=== PATIENT | female | born 1940 | race Caucasian/White ===

== ENCOUNTER → 2023-11-15 10:00 | Outpatient (REF) | payer OTHER, SELFPAY | LOC: DHCBS HW 10:00 | PROVIDERS: ATTENDING PHYSICIAN Internal Medicine Cardiovascular Disease; FAMILY PHYSICIAN Family Medicine | DX: I51.7 Cardiomegaly (principal); I05.9 Rheumatic mitral valve disease, unspecified; I35.9 Nonrheumatic aortic valve disorder, unspecified | CPT/HCPCS: 93306 ==

== ENCOUNTER 2024-01-15 06:43 | Emergency (ER) | payer OTHER, SELFPAY ==
[2024-01-15 06:44] VITALS: BMI 29.4
[2024-01-15 06:45] VITALS: BP 119/57
[2024-01-15 07:00] VITALS: BP 112/64
--- NOTE | 2024-01-15 07:02 | ED.GENMED ---
History of Present Illness
General
Chief Complaint: Fall
Source: patient
Time Seen by Provider: 01/15/24 06:50
Travel History
Have you had any contact with someone who has COVID-19?: No
Do you have any symptoms of coronavirus? Fever > 100 degrees, chills, cough, shortness of breath, sore throat, loss of taste or smell, muscle aches, or headache?: No
History of Present Illness
History of Present Illness:
83-year-old female brought to the emergency by ambulance after falling at home. Patient states she was sitting on her toilet to get dressed after getting a shower and Something on the floor. She leaned forward to fern picker this object when she fell
forward off of the toilet. Her body landed on both of her arms and she was unable to put herself up. Her had recent pacemaker placement and was unable to help her get up. 911 was called. Patient states that she was feeling unwell last
night with nausea vomiting diarrhea. No nausea currently. Patient denies any abdominal pain.
Past History
Past History
ED Past Medical History: HTN, NIDDM, Renal failure (Renal insufficiency) and Other (Kidney stones)
ED Past Surgical History: Tonsilectomy, Urological and Other
Social History
Tobacco: Non-smoker
Alcohol: None
Drug: None
Living: with family
Employment: Not employed
Phy Exam
Physical Exam
Physical Exam:
General: Awake, Alert, Oriented X3. No acute distress.
Vitals: unremarkable
Head: Atraumatic
Eyes: Pupils equal, EOMI
Throat: Airway intact, no exudates, dry mucosa
Neck: Trachea midline
Lungs: Clear and equal b/l
Heart: Regular rate, no murmurs
Abd: Soft, Nontender, No pulsatile mass
Neuro: Nonfocal
Skin: Warm, dry, no rash
Extremities: pulses equal b/l, no edema
Course
Orders/Labs/Results
Orders:
Orders
01/15/24 06:54
CMP [Comprehensive Metabolic Panel] Urgent
Complete Blood Count/With Diff Urgent
01/15/24 07:02
0.9% Sodium Chloride 500 ml [Nss] 500 ml IV BOLUS
Abnormal Lab Results
01/15/24
06:54
WBC 18.6 H 10^3/uL
(4.8-10.8)
MCH 31.2 H pg
(27.0-31.0)
MPV 11.6 H fL
(7.4-10.4)
Abs Immat Gran (auto) 0.1 H 10^3/uL
(0-0.05)
Absolute Neuts (auto) 16.9 H 10^3/uL
(1.4-6.5)
Absolute Lymphs (auto) 0.6 L 10^3/uL
(1.2-3.4)
Absolute Monos (auto) 1.1 H 10^3/uL
(0.1-0.6)
Neutrophils % 90.6 H %
(42.2-75.2)
Lymphocytes % 3.1 L %
(20.5-51.1)
BUN 22 H mg/dl
(7-17)
Creatinine 1.1 H mg/dL
(0.6-1.0)
Glucose 248 H mg/dl
(70-99)
01/15/24 06:54
01/15/24 06:54
Vital Signs
Initial and Last Documented VS:
Initial Vital Signs
Temp Pulse Resp BP Pulse Ox
98.5 F 96 18 119/57 96
01/15/24 06:45 01/15/24 06:45 01/15/24 06:45 01/15/24 06:45 01/15/24 06:45
Last Documented Vital Signs
Temp Pulse Resp BP Pulse Ox
98.5 F 80 18 98/50 93
01/15/24 06:45 01/15/24 08:45 01/15/24 08:45 01/15/24 08:00 01/15/24 08:45
MDM/Problems Addressed
Differential Diagnosis Includes:
gastroenteritis, dehydration, renal failure,
MDM/Problems Addressed:
Pt feeling well here in the ER. She received a 500cc fluid bolus. She was able to ambulate w/o difficulty. Pt would like to go home and feels much better.
Chronic conditions affecting care: DM, HTN and Other
*Pulse Oximetry
Patient hypoxic: no
*Critical Care Note
Total Time (30-74mins, 75-104mins- exclusive of procedures): Not Applicable
ED Attending Note
-
Portions of this chart may have been created with voice recognition software.� Occasional wrong word or��sound alike� substitutions may have occurred due to the inherent limitations of voice recognition software.
Discharge Plan
Departure
Patient Disposition: Home (Routine Discharge)
Date of Disposition: 01/15/24
Time of Disposition: 09:31
Patient with high blood pressure during this ER visit?: No
Condition: Good
Discharge Problem:
Fall, Gastroenteritis
Instructions: Viral gastroenteritis in adults, Preventing falls in adults
Prescriptions:
No Action
atenolol 50 MG tablet
50 mg PO DAILY Qty: 30 1RF
aspirin 81 MG tablet,delayed release (DR/EC)
81 mg PO DAILY
calcium carbonate 600 MG tablet
300 mg PO BID
simvastatin 20 MG tablet
20 mg PO HS
fluorometholone 1 DROP drops,suspension
1 drp BOTH EYES HS
lisinopril [Prinivil] 40 MG tablet
40 mg PO DAILY
coenzyme Q10 [Co Q-10] 100 MG capsule
100 mg PO HS
insulin aspart U-100 [Novolog FlexPen U-100 Insulin] 300 UNITS/3 ML insulin pen
0 units SC DAILYPRN PRN (Reason: bs>116)
Patient Comments:
01/22/20 patient only takes when bs>115
fish oil-dha-epa 1 EACH capsule
1 ea PO BID
insulin glargine [Lantus Solostar U-100 Insulin] 300 UNITS/3 ML insulin pen
50 units SC HS
potassium citrate 15 MEQ tablet extended release
15 meq PO HS Qty: 0
multivitamin with folic acid [Tab-A-Mabel] 1 TABLET tablet
1 tab PO DAILY
omeprazole 20 MG capsule,delayed release(DR/EC)
20 mg PO DAILY
sitagliptin phos-metformin [Janumet] 1 EACH tablet
1 ea PO BID@0800,1700
L.acidoph, paracasei,B. lactis 1 EACH capsule
1 ea PO HS
phenazopyridine 200 MG tablet
200 mg PO TIDPRN PRN (Reason: dysuria) Qty: 60 0RF
Referrals:
Yaya Morton MD [Family Provider] -
Interventions
Interventions:
*Risk Screen - Suicide Last Done: 01/15/24 06:45
*General Assessment Last Done: 01/15/24 06:50
*Neglect/Abuse Screening Last Done: 01/15/24 06:45
ED- Fall Risk Assessment Last Done: 01/15/24 09:42
*ED COVID-19 Vaccine History Last Done: 01/15/24 09:42
*Nursing Disposition Last Done: 01/15/24 09:42
ED-Musculoskeletal Assessment Last Done: 01/15/24 07:06
ED- Neurological Assessment Last Done: 01/15/24 07:06
ED-Skin Assessment Last Done: 01/15/24 07:06
Discharge Date and Time
Discharge Date/Time: 01/15/24 09:42
Print Language: KYRGYZ
[2024-01-15] MEDS: NSS 500 IV (07:08)
[2024-01-15 07:23] LABS: % Basophils 0.2 % (0-2); % Immature Granulocytes 0.5 % (0-0.5); % Lymphocytes 3.1 % (20.5-51.1); % Monocytes 5.6 % (1.7-9.3); % Neutrophils 90.6 % (42.2-75.2); Absolute Immature Granulocytes 0.1 10^3/uL (0-0.05); Absolute Lymphocytes 0.6 10^3/uL (1.2-3.4); Absolute Monocytes 1.1 10^3/uL (0.1-0.6); Absolute Neutrophils 16.9 10^3/uL (1.4-6.5); Hematocrit 42.1 % (37.0-47.0); Hemoglobin 13.9 g/dL (12.0-16.0); Mean Corpuscular Hgb 31.2 pg (27.0-31.0); Mean Corpuscular Volume 94.4 fL (81.0-99.0); Nucleated Red Blood Cells % 0 %; Red Blood Cell Count 4.46 10^6/uL (4.20-5.40); Red Cell Dist. Width 13.2 % (11.5-14.5); White Blood Cell Count 18.6 10^3/uL (4.8-10.8)
[2024-01-15 07:29] LABS: ALT (SGPT) 22 U/L (0-35); AST (SGOT) 31 U/L (14-36); Albumin 3.9 g/dl (3.5-5.0); Alkaline Phosphatase 85 U/L (38-126); Blood Urea Nitrogen 22 mg/dl (7-17); Calcium 9.4 mg/dl (8.4-10.2); Carbon Dioxide 28 mmol/L (22-30); Chloride 103 mmol/L (98-107); Estimated Creatinine Clearance 40 ml/min; Glucose 248 mg/dl (70-99); Potassium 3.6 mmol/L (3.5-5.1); Sodium 141 mmol/L (135-145); Total Bilirubin 0.8 mg/dl (0.2-1.3); Total Protein 6.6 g/dl (6.3-8.2); eGFR 50.48
[2024-01-15 07:52] LABS: Mean Platelet Volume 11.6 fL (7.4-10.4); Platelet Count 154 10^3/uL (130-400)
[2024-01-15 08:00] VITALS: BP 98/50
== END 2024-01-15 09:42 | disposition home or self-care (01) ==
LOC: EMR 06:43
PROVIDERS: EMERGENCY PHYSICIAN Emergency Medicine; FAMILY PHYSICIAN Family Medicine
DX: K52.9 Noninfective gastroenteritis and colitis, unspecified (principal); W18.11XA Fall from or off toilet without subsequent striking against object, initial encounter; Y93.E8 Activity, other personal hygiene; Y92.002 Bathroom of unspecified non-institutional (private) residence as the place of occurrence of the external cause; R11.2 Nausea with vomiting, unspecified; R19.7 Diarrhea, unspecified; E11.9 Type 2 diabetes mellitus without complications; I12.9 Hypertensive chronic kidney disease with stage 1 through stage 4 chronic kidney disease, or unspecified chronic kidney disease; N18.9 Chronic kidney disease, unspecified; Z87.442 Personal history of urinary calculi; Z79.82 Long term (current) use of aspirin; Z88.8 Allergy status to other drugs, medicaments and biological substances; Z88.3 Allergy status to other anti-infective agents; Z88.5 Allergy status to narcotic agent; Z88.0 Allergy status to penicillin; Z91.013 Allergy to seafood
CPT/HCPCS: 99284; 80053; 85025

== ENCOUNTER → 2024-01-30 11:38 | Outpatient (REF) | payer OTHER, SELFPAY | LOC: PAVMRI 11:38 | PROVIDERS: ATTENDING PHYSICIAN Physician Assistant Medical; FAMILY PHYSICIAN Family Medicine | DX: M25.562 Pain in left knee (principal) | CPT/HCPCS: 73721 ==

== ENCOUNTER → 2024-03-17 07:36 | Outpatient (REF) | payer OTHER, SELFPAY | LOC: DHCBC/DCA 07:36 | PROVIDERS: ATTENDING PHYSICIAN Internal Medicine Cardiovascular Disease; FAMILY PHYSICIAN Family Medicine | DX: I70.0 Atherosclerosis of aorta (principal); I10 Essential (primary) hypertension; I25.10 Atherosclerotic heart disease of native coronary artery without angina pectoris; I50.32 Chronic diastolic (congestive) heart failure | CPT/HCPCS: 78452; 93017; A9500; J2785 ==

== ENCOUNTER 2024-04-16 09:08 | Inpatient (IN) | payer OTHER, SELFPAY ==
--- NOTE | 2024-03-12 10:28 | CM ---
Patient is scheduled for an elective L TKR on 04/16/24. Spoke with patient prior to surgery via telephone. Introduced role of Orthopedic Navigator. Patient reports that she lives with her and adult daughter (who has CP but is independent) in
a multi story home. There is a ramp to enter and a flight of steps down to the basement where her family room is. She currently functions independently. She uses a quad cane for very long distances and also has a rolling walker, single point cane,
shower seat and wheel chair. She has never had VN services. PCP is Dr. Yaya Morton.
Discussed orthopedic program and post surgical plans. Reviewed anticipated length of stay and that goal is for her to return home at discharge. Also reviewed outpatient PT. Patient is in agreement with tentative plan and will go directly to
outpatient PT at [facility]. She will have support from her when she goes home.
Patient will complete online education.
[2024-03-28 10:43] VITALS: BMI 27.7
[2024-03-28 11:42] LABS: Glycohemoglobin (HgbA1c) 7.1 % (4.0-5.6)
[2024-03-28 12:07] LABS: Hematocrit 40.1 % (37.0-47.0); Hemoglobin 13.5 g/dL (12.0-16.0); Mean Corp Hgb Conc. 33.7 g/dL (33.0-37.0); Mean Corpuscular Hgb 31.8 pg (27.0-31.0); Mean Corpuscular Volume 94.6 fL (81.0-99.0); Mean Platelet Volume 12.2 fL (7.4-10.4); Platelet Count 198 10^3/uL (130-400); Red Blood Cell Count 4.24 10^6/uL (4.20-5.40); Red Cell Dist. Width 13.2 % (11.5-14.5); White Blood Cell Count 7.3 10^3/uL (4.8-10.8)
[2024-03-28 12:49] LABS: ALT (SGPT) 16 U/L (0-35); AST (SGOT) 28 U/L (14-36); Albumin 4.3 g/dl (3.5-5.0); Alkaline Phosphatase 69 U/L (38-126); Blood Urea Nitrogen 29 mg/dl (7-17); Calcium 10.1 mg/dl (8.4-10.2); Carbon Dioxide 31 mmol/L (22-30); Chloride 98 mmol/L (98-107); Estimated Creatinine Clearance 39 ml/min; Glucose 260 mg/dl (70-99); Potassium 4.1 mmol/L (3.5-5.1); Sodium 138 mmol/L (135-145); Total Protein 6.9 g/dl (6.3-8.2); eGFR 50.17
[2024-04-09 15:30] VITALS: BMI 27.7
[2024-04-09 15:57] VITALS: BMI 27.7
[2024-04-16] VITALS (13 sets, daily range): BP systolic 112–159; BP diastolic 55–83; PULSE 83; O2SAT 97
[2024-04-16] MEDS: CELEBREX 200 MG PO (09:50)
[2024-04-16] MEDS: TYLENOL 650 MG PO ×4 (09:50→23:12)
[2024-04-16 09:52] LABS: Glucose - Point of Care 114 mg/dl (70-99)
[2024-04-16] MEDS: NORMOSOL-R 1000 IV ×2 (09:57→14:46)
[2024-04-16 12:26] LABS: Glucose - Point of Care 102 mg/dl (70-99)
--- NOTE | 2024-04-16 13:00 | W.DS.TRANS ---
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
-
Discharge Instructions:
Sleep Apnea Risk Low
Discharge Diagnosis/Procedures L TKA Dr. Jones 04/16/24
Diet Diabetic, Carb Controlled
Activity With Walker
Driving Restrictions No driving
Bathing Restrictions OK to Shower
Instructions:
Stand-Alone Forms: Total Hip/Knee Replacement D/C
Changes to Home Medications: Yes
Discharge Medications:
DC Medications w/original date entered in [employer]
atenolol 50 mg tablet 50 mg PO DAILY #30 tabs 02/23/17
coenzyme Q10 100 mg capsule (Co Q-10) 100 mg PO HS Supplement 10/06/19
fluorometholone 0.1 % eye drops,suspension 1 drp BOTH EYES HS Eye condition 10/06/19
insulin aspart U-100 100 unit/mL (3 mL) subcutaneous pen (Novolog FlexPen U-100 Insulin aspart) 10 - 12 units SC BID 10/06/19
insulin glargine 100 unit/mL (3 mL) subcutaneous pen (Lantus Solostar U-100 Insulin) 25 units SC DAILY Diabetes 10/06/19
potassium citrate 15 mEq (1,620 mg) tablet,extended release 15 meq PO HS Urinary issue ##0 10/06/19
simvastatin 20 mg tablet 20 mg PO HS High cholesterol 10/06/19
[place] 3 Ethyl Esters 1 cap PO BID 04/09/24
calcium carbonate 300 mg PO BID 04/09/24
hydrochlorothiazide 25 mg tablet 25 mg PO DAILY 04/09/24
lisinopril 40 mg tablet 40 mg PO DAILY 04/09/24
multivitamin 1 tab PO DAILY 04/09/24
mupirocin 2 % topical ointment 1 applic topical BID 04/09/24
sitagliptin phos 100 mg-metformin ER 1,000 mg tablet,extend rel 24h mp (Janumet XR) 1 tab PO QPM 04/09/24
ondansetron HCl 4 mg tablet 4 mg PO Q6H PRN post op nausea 04/15/24
Probiotic 1 cap PO BID ##0 04/16/24
aspirin 325 mg tablet 325 mg PO DAILY blood clot prevention #0 tabs 04/16/24
celecoxib 100 mg capsule 100 mg PO BID post op inflammation #0 caps 04/16/24
clindamycin HCl 300 mg capsule 300 mg PO QID Infection #20 caps 04/16/24
dexamethasone 4 mg tablet 4 mg PO BID post op inflammation #0 tabs 04/16/24
docusate sodium 100 mg capsule (Colace) 100 mg PO BID stool softner #1 cap 04/16/24
insulin glargine 100 unit/mL (3 mL) subcutaneous pen 35 unit SC QPM 04/16/24
magnesium hydroxide 400 mg/5 mL oral suspension (Milk of Magnesia) 30 ml PO HS PRN Constipation #1 mL 04/16/24
sennosides 8.6 mg tablet (Senokot) 17.2 mg (2 x 8.6 mg) PO BID laxative #2 tabs 04/16/24
tramadol 50 mg tablet 50 mg PO Q6H post op pain #0 tabs 04/16/24
Home Medication Changes
ondansetron HCl 4 mg tablet 4 mg PO Q6H PRN post op nausea 04/15/24
Probiotic 1 cap PO BID ##0 04/16/24
aspirin 325 mg tablet 325 mg PO DAILY blood clot prevention #0 tabs 04/16/24
celecoxib 100 mg capsule 100 mg PO BID post op inflammation #0 caps 04/16/24
clindamycin HCl 300 mg capsule 300 mg PO QID Infection #20 caps 04/16/24
dexamethasone 4 mg tablet 4 mg PO BID post op inflammation #0 tabs 04/16/24
tramadol 50 mg tablet 50 mg PO Q6H post op pain #0 tabs 04/16/24
Pending Results: No
[2024-04-16] MEDS: ULTRAM 50 MG PO (14:12)
[2024-04-16] MEDS: ZOFRAN 4 MG IV (14:20)
[2024-04-16 14:26] LABS: Glucose - Point of Care 114 mg/dl (70-99)
[2024-04-16] MEDS: COMPAZINE 5 MG IV (15:29)
--- NOTE | 2024-04-16 16:25 | PTCARENOTE ---
Pt received from the PACU via bed. Transport was w/o incident. Pt is AAOx3, HRR, lungs are clear, resp. easy. Pulse ox 97% 2Lvia nc. Pt's Left Knee with Primaseal dressing w/ noted 3 areas of drainage as per report from PACU. No new drainage noted.
VSS, Pt is afebrile. Pt instructed on plan of care. Pt verbalized understanding of instructions. Call escobar is within reach.
[2024-04-16 17:10] LABS: Glucose - Point of Care 169 mg/dl (70-99)
[2024-04-16] MEDS: NOVOLOG FLEXPEN 4 UNITS SC (18:33)
[2024-04-16] MEDS: NOVOLOG FLEXPEN-MODERATE RESISTANCE 1 UNITS SC (18:34)
[2024-04-16] MEDS: ASPIRIN 325 MG PO (18:35)
[2024-04-16] MEDS: GLUCOPHAGE XR EXTENDED RELEASE 1000 MG PO (18:35)
[2024-04-16] MEDS: JANUVIA 100 MG PO (18:35)
[2024-04-16] MEDS: SENOKOT PO (20:28)
[2024-04-16] MEDS: ANCEF 5 IV (20:30)
[2024-04-16] MEDS: TORADOL 15 MG IV (20:30)
[2024-04-16] MEDS: COLACE 100 MG PO (20:30)
[2024-04-16] MEDS: ULTRAM 25 MG PO (20:30)
[2024-04-16] MEDS: BACTROBAN 2% OINTMENT 1 APPLIC NASAL (20:30)
[2024-04-16 21:40] LABS: Glucose - Point of Care 208 mg/dl (70-99)
[2024-04-16] MEDS: PEPCID 20 MG PO (22:27)
[2024-04-16] MEDS: FML 0.1% OPHTHALMIC SUSPENSION 1 DROP BOTH EYES (22:28)
[2024-04-16] MEDS: LIPITOR 10 MG PO (22:28)
[2024-04-16] MEDS: NEURONTIN 300 MG PO (22:28)
[2024-04-16] MEDS: LANTUS 0.38 UNITS SC (22:38)
[2024-04-17] MEDS: TYLENOL 650 MG PO ×3 (03:40→12:31)
[2024-04-17] MEDS: ANCEF 5 IV (03:40)
[2024-04-17 07:50] LABS: Glucose - Point of Care 146 mg/dl (70-99)
[2024-04-17 07:52] VITALS: BP 116/60
[2024-04-17] MEDS: NOVOLOG FLEXPEN 2 UNITS SC (08:48)
[2024-04-17] MEDS: BACTROBAN 2% OINTMENT 1 APPLIC NASAL (08:49)
[2024-04-17] MEDS: NOVOLOG FLEXPEN-MODERATE RESISTANCE SC (08:49)
[2024-04-17] MEDS: ULTRAM 25 MG PO (08:50)
[2024-04-17] MEDS: TORADOL 15 MG IV (08:53)
[2024-04-17] MEDS: ZESTRIL 10 MG PO (08:55)
[2024-04-17] MEDS: TENORMIN 25 MG PO (08:55)
[2024-04-17] MEDS: CELEBREX 200 MG PO (08:55)
[2024-04-17] MEDS: COLACE 100 MG PO (08:55)
[2024-04-17] MEDS: ASPIRIN 325 MG PO (08:55)
[2024-04-17] MEDS: SENOKOT 17.2 MG PO (08:56)
[2024-04-17] MEDS: LANTUS 0.3 UNITS SC (09:01)
--- NOTE | 2024-04-17 11:10 | W.PN.ORTHO ---
Today's Communication / Plan
-
d/c
Assessment
.
Distal Motor Intact: Yes
Dressing:
Clean, dry and intact.
Plan
.
Surgery / Date: Anitra Jones 04/16/24
DVT Prophylaxis: Aspirin
Activity:
Out of bed.
PT/OT
Discharge Plan: Home w/ Outpatient PT
Subjective
.
.:
Patient resting comfortably.
Vital Signs and Labs
.
Vital Signs and Labs:
Lab Results
03/28/24 09:16
03/28/24 09:16
Temp Pulse Resp BP Pulse Ox
98.6 F 82 18 116/60 93
04/17/24 07:52 04/17/24 07:52 04/17/24 07:52 04/17/24 07:52 04/17/24 07:52
Non-invasive Hgb result: 12
Physical Exam
-
HEENT: No pallor, cyanosis, or jaundice. Throat clear.
NECK: Supple. No JVD.
RESPIRATORY: Lungs clear to auscultation.
CVS: S1, S2 normal. RRR.� No murmur, rub or gallop.
ABDOMEN: Soft, non-tender. No distension. BS+/normal.
EXTREMITIES: strength equal, no calf pain with palpation
COLOR CONTROL SUPERVISOR: AOx3. No focal deficits. jewelry polisher grossly intact
--- NOTE | 2024-04-17 11:35 | CM ---
Addendum entered by Julianne Reis 04/17/24 13:11:
PCP: Yaya Morton
Pharmacy: [facility]
Original Note:
Patient seen at bedside.
IA was completed.
Patient lives in a 2 story home with & adult daughter with a ramp to enter home. Living space on 1st floor with bedroom and bathroom.
Denies any housing/food/utility insecurities.
Stated she already signed IMM.
IMM was explained on 04/17 922.
Case consult completed.
Patient has set up outpatient rehab. States friends from [facility] will be transporting there as her had a 'medical problem' a few weeks ago.
Discharge today - Niece is to transport home.
[2024-04-17 11:47] VITALS: BP 96/50
[2024-04-17 12:12] VITALS: BP 116/47; BP 96/50; PULSE 72
[2024-04-17 12:25] LABS: Glucose - Point of Care 152 mg/dl (70-99)
[2024-04-17] MEDS: NOVOLOG FLEXPEN 4 UNITS SC (12:30)
[2024-04-17] MEDS: NOVOLOG FLEXPEN-MODERATE RESISTANCE 1 UNITS SC (12:31)
== END 2024-04-17 15:42 | disposition home or self-care (01) | DRG 470 ==
LOC: 2 SOUTH 09:08
PROVIDERS: ADMITTING PHYSICIAN Orthopaedic Surgery; FAMILY PHYSICIAN Family Medicine
PROC: 0SRD0J9 Replacement of Left Knee Joint with Synthetic Substitute, Cemented, Open Approach (ICD-10-PCS; 2024-04-16)
DX: M17.12 Unilateral primary osteoarthritis, left knee (principal); I47.10 Supraventricular tachycardia, unspecified; K21.9 Gastro-esophageal reflux disease without esophagitis; E11.51 Type 2 diabetes mellitus with diabetic peripheral angiopathy without gangrene; E78.2 Mixed hyperlipidemia; I35.1 Nonrheumatic aortic (valve) insufficiency; R26.2 Difficulty in walking, not elsewhere classified; Z79.4 Long term (current) use of insulin; Z79.84 Long term (current) use of oral hypoglycemic drugs; Z79.899 Other long term (current) drug therapy; Z88.0 Allergy status to penicillin; Z88.5 Allergy status to narcotic agent
CPT/HCPCS: 36415; 73560; 80053; 82962; 83036; 85027; 87070; 97110; 97116; 97162; 97166; 97530; 97535; C1713; C1776

== ENCOUNTER 2024-04-20 22:37 | Inpatient (IN) | payer OTHER, SELFPAY ==
[2024-04-20] VITALS (7 sets, daily range): BP systolic 122–163; BP diastolic 53–76; BMI 28.3; BMI 27.5
[2024-04-20 20:14] LABS: Glucose - Point of Care 79 mg/dl (70-99)
[2024-04-20] MEDS: NSS 1000 IV (20:40)
--- NOTE | 2024-04-20 20:44 | ED.GENMED ---
History of Present Illness
General
Chief Complaint: Abdominal Pain
Source: patient and family
Time Seen by Provider: 04/20/24 20:20
History of Present Illness
History of Present Illness:
84-year-old female presents here with her niece and niece's with complaints of inability to tolerate p.o. all day. Patient is status post recent knee replacement and has been doing well in her recovery. She denies knee pain, fever, chills.
However, she noticed yesterday that when she would try to eat she would feel like it was not passing and like her throat was getting tight. Eventually it would pass and this would be painful for her, and then the symptoms would go away. She had a
very small amount of oatmeal yesterday. Today, she states she cannot tolerate liquids or solids because of this discomfort and feeling like it is getting before it passes. She denies vomiting, drooling, nausea, or other complaints. She denies
dyspnea or new leg swelling. Of note, patient was started on new medications including anti-inflammatories and steroids. She does not note black stool or bright red blood per rectum.
Past History
Past History
ED Past Medical History: HTN, IDDM, Renal failure (Renal insufficiency) and Other (Kidney stones)
ED Past Surgical History: Tonsilectomy, Urological and Other
Social History
Tobacco: Non-smoker
Alcohol: None
Drug: None
Living: with family
Employment: Not employed
Phy Exam
Physical Exam
Physical Exam:
GENERAL: Alert , in no apparent distress
EYE: pupils equal and reactive
NECK: Supple, no significant adenopathy.
ENT: o/p clr, mm very dry
CARDIAC: Regular rate and rhythm .
LUNGS: Clear breath sounds bilaterally, no acute respiratory distress, no wheezes/rales/rhonchi
ABDOMEN: Soft, without focal tenderness, no r/g, no cvat
NEUROLOGICAL: Alert and oriented, no focal neuro deficits
SKIN: Warm and dry, skin intact.
MUSCULOSKELETAL: Left knee with intact bandage, appropriate postoperative expected bruising, no redness or warmth, expected range of motion, well perfused.
PSYCH: Normal and appropriate interaction.
Course
Orders/Labs/Results
Orders:
Orders
04/20/24 20:39
0.9% Sodium Chloride 1000 ml [Nss] 1,000 ml IV BOLUS
04/20/24 20:41
Electrocardiogram (*1) Urgent
Reason for Study: Chest Pain
EKG- Treatment ONCE
04/20/24 20:42
CMP [Comprehensive Metabolic Panel] Urgent
Complete Blood Count/With Diff Urgent
Lipase Urgent
04/20/24 21:16
Pantoprazole [Protonix IV] 40 mg IV NOW STA
04/20/24 21:50
Dextrose 50%-Water [Dextrose 50% Syringe] 25 grams .ROUTE .[facility]
04/20/24 21:51
Dextrose 50%-Water [Dextrose 50% Syringe] 12.5 grams IV NOW STA
04/20/24 22:00
Dextrose 5%/0.9%Sodchl 1000 ml [D5/0.9% Sodium Chloride] 1,000 ml IV 100 mls/hr
Flush (0.9% Sodium Chloride) [Flush (Nss)] See Dose Instructions IV PER PROTOCOL
04/20/24 22:16
CR Chest - 2 Views Stat
Comment:
Reason For Exam: sob
04/20/24 22:23
Admit/Transfer Patient As Directed
Co-Sign Provider:
Level of Care: Inpatient admission
Assign to:: Medical/Surgical
Physician / Group: bebe
Diagnosis: esophagitis
Reason for Hospitalization: esophagitis
Expected length of stay greater than two midnights?: Yes
ELOS- Estimated Length of Stay in days: 3
I certify the patient meets the requirements for IP care: Yes
PRN Pain Medication Management As Directed
May give lesser potent ordered pain med per pt: Yes
preference::
Protocol:: Medication orders for pain may be administered in a
manner that supports deferring to patient preference
when the pt is:
- Requesting an ordered lesser potent pain medication.
Least to most potent pain medications are defined
as: acetaminophen < NSAID < tramadol < opioids
(morphine, oxycodone, hydromorphone).
- Requesting a lesser dose of the same medication IF
ORDERED.
- Requesting a less intrusive route of administration
if both routes are prescribed by the provider (PO <
IV).
04/20/24 22:26
Code Status As Directed
Resuscitation Status: Full Code
04/21/24 00:36
Acetaminophen [Tylenol] 650 mg PO Q4HPRN PRN
Bisacodyl [Dulcolax] 10 mg RECTAL [id number] PRN
Dextrose 5%/0.45%Sodchl 1000ML [D5/0.45%NaCl] 1,000 ml IV 80 mls/hr
Dextrose 50%-Water [Dextrose 50% Syringe] 12.5 grams IV [id number] PRN
Docusate W/Senna [Senokot-S] 1 tablet PO BIDPRN PRN
Glucagon [GlucaGen] 1 mg IM PRN PRN
Mag&Al/Sim/Diphenhyd/Lidocaine [First-Mouthwash Blm Suspension] 5 ml PO QIDPRN PRN
Polyethylene Glycol Powder [Miralax] 17 grams PO DAILYPRN PRN
04/21/24 00:36
Consult Notification Routine
Specialty to Notify: Gastroenterology
GASTROINTESTINAL CONSULT Routine
Consulting Provider: Joseph Bedoya
Was physician already notified: No
Reason for consult: odonophagia
Activity As Directed
Activity Level: As Tolerated
Bedside Glucose Monitoring As Directed
Frequency: AC&HS
Additional Instructions:: Change to q6h if pt on TPN, tube feeding or not eating
Vital Signs As Directed
Frequency: Per unit guidelines
04/21/24 Breakfast
NPO
Allow oral meds: Yes
Allow clear liquids: No
Basic Metabolic Panel IN AM
Complete Blood Count/No Diff IN AM
04/21/24 07:30
Insulin Aspart Corrective Low [Novolog Flexpen-Low Resistance] See Protocol SC AC
04/21/24 08:00
Atenolol [Tenormin] 50 mg PO DAILY
Clindamycin HCl [Cleocin] 300 mg PO QID
Docusate Sodium [Colace] 100 mg PO BID
Hydrochlorothiazide [Oretic] 25 mg PO DAILY
Lisinopril [Zestril] 40 mg PO DAILY
Pantoprazole [Protonix IV] 40 mg IV DAILY
Sennosides [Senokot] 17.2 mg PO BID
04/21/24 22:00
Atorvastatin [Lipitor] 10 mg PO HS
Fluorometholone [Fml 0.1% Ophthalmic Suspension] 1 drop BOTH EYES HS
Potassium Citrate [Urocit-K] 15 meq PO HS
04/22/24 06:00
Basic Metabolic Panel IN AM
Complete Blood Count/No Diff IN AM
04/23/24 06:00
Basic Metabolic Panel IN AM
Complete Blood Count/No Diff IN AM
04/24/24 06:00
Basic Metabolic Panel IN AM
Complete Blood Count/No Diff IN AM
04/25/24 06:00
Basic Metabolic Panel IN AM
Complete Blood Count/No Diff IN AM
Abnormal Lab Results
04/20/24 04/20/24 04/20/24
20:42 21:50 22:17
WBC 12.0 H 10^3/uL
(4.8-10.8)
RBC 3.45 L 10^6/uL
(4.20-5.40)
Hgb 10.9 L g/dL
(12.0-16.0)
Hct 31.1 L %
(37.0-47.0)
MCH 31.6 H pg
(27.0-31.0)
MPV 10.8 H fL
(7.4-10.4)
Abs Immat Gran (auto) 0.1 H 10^3/uL
(0-0.05)
Absolute Neuts (auto) 7.6 H 10^3/uL
(1.4-6.5)
Absolute Monos (auto) 1.0 H 10^3/uL
(0.1-0.6)
Carbon Dioxide 31 H mmol/L
(22-30)
BUN 34 H mg/dl
(7-17)
Creatinine 1.1 H mg/dL
(0.6-1.0)
Glucose 69 L mg/dl
(70-99)
Total Bilirubin 1.6 H mg/dl
(0.2-1.3)
AST 50 H U/L
(14-36)
POC Glucose 62 L mg/dl 150 H mg/dl
(70-99) (70-99)
04/20/24 20:42
04/20/24 20:42
Vital Signs
Initial and Last Documented VS:
Initial Vital Signs
Temp Pulse Resp BP Pulse Ox
98.3 F 82 18 125/63 96
04/20/24 20:02 04/20/24 20:02 04/20/24 20:02 04/20/24 20:02 04/20/24 20:02
Last Documented Vital Signs
Temp Pulse Resp BP Pulse Ox
97.7 F 73 20 137/68 96
04/20/24 23:45 04/20/24 23:45 04/20/24 23:45 04/21/24 00:53 04/20/24 23:45
*Critical Care Note
Total Time (30-74mins, 75-104mins- exclusive of procedures): Not Applicable
Update Note
Update Note:
Patient presents to the Emergency Department with difficulty tolerating p.o.
Number and Complexity of Problems Addressed at the Encounter
� Chronic conditions affecting care:
� Acute Exacerbation and/or Progression of Chronic Illness:
� Differential Diagnosis includes: But not limited to esophagitis, gastritis, gastric ulcer, esophageal ulcer, stricture, etc. etc.
Amount and/or Complexity of Data to be Reviewed and Analyzed
� I performed an independent evaluation of and my interpretation is:
EKG:read by me, nsr with 1st degree vlock, no acute ischemia
CT:
Xrays:
Laboratory Studies:mild leukocytosis (?related to recent steroids), mild anemia compared to prior, stable renal insufficiency.
Other:
� Review of other/old records reveals:
� Clinical information was obtained by an independent historian: Niece and niece's
� Prescriptions/Medications Considered but not given:
� Further testing considered but not performed:
Risk of Complications and/or Morbidity or Mortality of Patient Management
� Social determinants of health affecting care:
� Discussion with other providers (PCP, Hospitalists, Consultants, etc):
� Escalation of care including admission/observation vs risk of discharge considered:Pt unable to tolerate po due to discomfort, no pain or sxs if not trying to swallow. Given recent steroids/nsaids, concern ?possible
esophageal/gastric inflamm/ulcers. Benn[place]y needs endoscopy with GI in AM. In meantime, hydration and blood glucose managemnet. TT to hsopitalist for admission.
ED Attending Note
-
Portions of this chart may have been created with voice recognition software.� Occasional wrong word or��sound alike� substitutions may have occurred due to the inherent limitations of voice recognition software.
Discharge Plan
Departure
Patient Disposition: Admit
Date of Disposition: 04/20/24
Time of Disposition: 21:45
Admit to: Med/Surg
Presentation/result/management discussed w/ accepting MD/DO: Hospitalist
Condition: Fair
Discharge Problem:
Odynophagia
Interventions
Interventions:
*Risk Screen - Suicide Last Done: 04/20/24 20:02
*General Assessment Last Done: 04/20/24 20:02
*Neglect/Abuse Screening Last Done: 04/20/24 20:02
ED- Fall Risk Assessment Last Done: 04/20/24 20:20
*Nursing Disposition Last Done: 04/20/24 23:36
EA-Hnavdh-Afiixwcnbn Assessment Last Done: 04/20/24 20:20
Discharge Date and Time
Discharge Date/Time: 04/20/24 23:37
[2024-04-20 20:52] LABS: % Basophils 0.3 % (0-2); % Eosinophils 0.6 % (0-6); % Immature Granulocytes 0.4 % (0-0.5); % Lymphocytes 26.3 % (20.5-51.1); % Monocytes 8.7 % (1.7-9.3); % Neutrophils 63.7 % (42.2-75.2); Absolute Eosinophils 0.1 10^3/uL (0-0.7); Absolute Immature Granulocytes 0.1 10^3/uL (0-0.05); Absolute Lymphocytes 3.1 10^3/uL (1.2-3.4); Absolute Neutrophils 7.6 10^3/uL (1.4-6.5); Hematocrit 31.1 % (37.0-47.0); Hemoglobin 10.9 g/dL (12.0-16.0); Mean Corpuscular Hgb 31.6 pg (27.0-31.0); Mean Corpuscular Volume 90.1 fL (81.0-99.0); Mean Platelet Volume 10.8 fL (7.4-10.4); Nucleated Red Blood Cells % 0 %; Platelet Count 205 10^3/uL (130-400); Red Blood Cell Count 3.45 10^6/uL (4.20-5.40); Red Cell Dist. Width 13.4 % (11.5-14.5)
[2024-04-20 21:11] LABS: ALT (SGPT) 24 U/L (0-35); AST (SGOT) 50 U/L (14-36); Albumin 4.2 g/dl (3.5-5.0); Alkaline Phosphatase 59 U/L (38-126); Blood Urea Nitrogen 34 mg/dl (7-17); Carbon Dioxide 31 mmol/L (22-30); Chloride 99 mmol/L (98-107); Estimated Creatinine Clearance 39 ml/min; Glucose 69 mg/dl (70-99); Lipase 216 U/L (23-300); Potassium 3.5 mmol/L (3.5-5.1); Sodium 142 mmol/L (135-145); Total Bilirubin 1.6 mg/dl (0.2-1.3); Total Protein 6.8 g/dl (6.3-8.2); eGFR 50.17
[2024-04-20] MEDS: D5/0.9% SODIUM CHLORIDE 1000 IV (21:44)
[2024-04-20] MEDS: PROTONIX IV 40 MG IV (21:45)
[2024-04-20] MEDS: DEXTROSE 50% SYRINGE 12.5 GRAMS IV (21:51)
--- NOTE | 2024-04-20 21:51 | HPS.HSE ---
Family Physician
-
Family Physician: Yaya Morton
Chief Complaint
-
painful swallowing
History of Present Illness
84-year-old female with PMH for hyperlipidemia, SVT, hypertension, PVD, type 2 diabetes, GERD, stage III chronic kidney disease presented to us with painful swallowing. Pain with swallowing started yesterday. Every time she eats or drinks she
feels the pain in her throat, as if it was getting contracted. she felt the pain in her Esophagus and across the upper stomach. Patient denied any nausea, vomiting, diarrhea. Denied any black stools. Denied any bloody stools. Patient denied
any headache, dizziness, syncopal episode. Patient denied any fever, chills, chest pain, short of breath. Patient denied dysuria hematuria.
patient is status post recent knee replacement and has been doing well in her recovery. She denies knee pain. fever, chills. Patient was sent home on aspirin, Celebrex Decadron, clindamycin and tramadol.
Medical History
Past Medical History
Past Medical History: Reports Other
Additional Past Medical History:
Hyperlipidemia
SVT
Hypertension
PVD
Type 2 diabetes
GERD
Stage III chronic kidney disease
Past Surgical History: Reports Other
Additional Past Surgical History:
Tonsillectomy
Hysterectomy
Removal of kidney stones
Corneal transplant
Cataract
Left below-knee amputation
Social History
Tobacco: Non-smoker
Alcohol: None
Drug: None
Personal:
Living: With Family
Family History
Family History: Not pertinent
Allergies / Home Medications
Allergies reflects when Allergies were last updated in [facility].
Home Medications with original date entered in [facility]
Allergy/Medication List:
Allergies
Allergy/AdvReac Type Severity Reaction Status Date / Time
Cephalosporins Allergy Unknown Verified 04/09/24 16:22
iodine Allergy Hives Verified 04/09/24 16:22
oxycodone HCl [From Percocet] Allergy hallucinati Verified 04/09/24 16:22
ons
penicillin G Allergy Rash Verified 04/09/24 16:22
Penicillins Allergy Rash Verified 04/16/24 09:32
shellfish derived Allergy Hives Verified 04/09/24 16:22
Home Medications
atenolol 50 mg tablet 50 mg PO DAILY #30 tabs 02/23/17
coenzyme Q10 100 mg capsule (Co Q-10) 100 mg PO HS Supplement 10/06/19
fluorometholone 0.1 % eye drops,suspension 1 drp BOTH EYES HS Eye condition 10/06/19
insulin aspart U-100 100 unit/mL (3 mL) subcutaneous pen (Novolog FlexPen U-100 Insulin aspart) 10 - 12 units SC BID Diabetes 10/06/19
insulin glargine 100 unit/mL (3 mL) subcutaneous pen (Lantus Solostar U-100 Insulin) 25 units SC DAILY Diabetes 10/06/19
potassium citrate 15 mEq (1,620 mg) tablet,extended release 15 meq PO HS Urinary issue ##0 10/06/19
simvastatin 20 mg tablet 20 mg PO HS High cholesterol 10/06/19
[place] 3 Ethyl Esters 1 cap PO BID 04/09/24
calcium carbonate 300 mg PO BID Supplement 04/09/24
hydrochlorothiazide 25 mg tablet 25 mg PO DAILY Fluid Retention/Swelling 04/09/24
lisinopril 40 mg tablet 40 mg PO DAILY Blood Pressure 04/09/24
multivitamin 1 tab PO DAILY Supplement 04/09/24
mupirocin 2 % topical ointment 1 applic topical BID 04/09/24
sitagliptin phos 100 mg-metformin ER 1,000 mg tablet,extend rel 24h mp (Janumet XR) 1 tab PO QPM Diabetes 04/09/24
Probiotic 1 cap PO BID ##0 04/16/24
aspirin 325 mg tablet 325 mg PO DAILY blood clot prevention #0 tabs 04/16/24
celecoxib 100 mg capsule 100 mg PO BID post op inflammation #0 caps 04/16/24
clindamycin HCl 300 mg capsule 300 mg PO QID Infection #20 caps 04/16/24
dexamethasone 4 mg tablet 4 mg PO BID post op inflammation #0 tabs 04/16/24
docusate sodium 100 mg capsule (Colace) 100 mg PO BID stool softner #1 cap 04/16/24
insulin glargine 100 unit/mL (3 mL) subcutaneous pen 35 unit SC QPM Diabetes 04/16/24
magnesium hydroxide 400 mg/5 mL oral suspension (Milk of Magnesia) 30 ml PO HS PRN Constipation #1 mL 04/16/24
sennosides 8.6 mg tablet (Senokot) 17.2 mg (2 x 8.6 mg) PO BID laxative #2 tabs 04/16/24
Review of Systems
-
Constitutional: Reports No Symptoms
EENT: Reports No Symptoms
Respiratory: Reports No Symptoms
Cardiac: Reports No Symptoms
Abdomen/GI: Reports Abdominal Pain and Other (Painful swallowing)
: Reports No Symptoms
Musculoskeletal: Reports No Symptoms
Skin: Reports No Symptoms
Neurological: Reports No Symptoms
Endocrine: Reports No Symptoms
Hematologic/Lymphatic: Reports No Symptoms
Psych: Reports No Symptoms
Physical Exam
Vital Signs
Vital Signs
Temp Pulse Resp BP Pulse Ox
98.3 F 82 18 125/63 96
04/20/24 20:02 04/20/24 20:02 04/20/24 20:02 04/20/24 20:02 04/20/24 20:26
Physical Exam
General: Well Developed, Well Nourished and No Apparent Distress
HEENT: NormoCephalic, Moist mucous membranes and Atraumatic
Respiratory: Clear
Cardiac: S1/S2 and Regular Rhythm; No Murmur or Rub
GI: Soft, Non Tender, Non Distended and Normal Bowel Sounds; No Organomegaly
Rectal: Deferred by Provider
Musculoskeletal: No Clubbing, No Cyanosis and Other (left LE edema,bruising noted on left thigh)
Skin: No Rash
Neuro: AO x 3 and Nonfocal/grossly intact
Psych: Calm
Laboratory Results
-
04/20/24 20:42
04/20/24 20:42
Laboratory Results
Total Bilirubin 1.6 mg/dl (0.2-1.3) H 04/20/24 20:42
AST 50 U/L (14-36) H 04/20/24 20:42
ALT 24 U/L (0-35) 04/20/24 20:42
Alkaline Phosphatase 59 U/L (38-126) 04/20/24 20:42
Lipase 216 U/L (23-300) 04/20/24 20:42
Data Reviewed
-
Lab Data: Labs Reviewed by me
Impression/Plan
-
#odynophagia/stomach pain likely esophagitis
-initiated on magic mouth wash
-IV PPI
-keep patient NPO
-fluids continued for hydration
-GI consult
#leukocytosis likely stress reaction/recent post op
-wc 12.0
-patient is afebrile
-ctm
#anemia likely postop
-hgb stable at 10.9
-no active bleeding
-ctm
# Status post left knee replacement
-hold aspirin,Celebrex.
-Clinda for 5 days for prophylactically (tomorrow being the 5th day)
-Decadron was for 3 days.
#CKD stage 3b
-cr 1.1m bun 34
-ctm
# Essential hypertension
-Blood pressure stable
-continue atenolol and HCTZ, lisinopril with hold parameter
# Type 2 diabetes
-Hold long-acting, insulin from home as patient was hypoglycemic on arrival
-Sliding scale
# Hyperlipidemia
-Statin continued
# DVT prophylaxis
-lovenox
# CODE STATUS
-Full code
[2024-04-20 21:52] LABS: Glucose - Point of Care 62 mg/dl (70-99)
[2024-04-20 22:19] LABS: Glucose - Point of Care 150 mg/dl (70-99)
--- NOTE | 2024-04-20 22:24 | W.PN.UPDATE ---
Update Note
Progress Note Update
Patient seen, evaluated and examined in conjunction with MATY. Agree with her findings on history exam and concur with assessment and plan unless otherwise stated below.
Briefly this is an 84-year-old female with past medical history significant for insulin-dependent diabetes on Lantus twice daily, hypertension, hyperlipidemia, obesity and end-stage arthritis who was recently status post total knee arthroplasty and
discharged April 17. She was placed on aspirin 325 for DVT prophylaxis, dexamethasone and Celebrex. Patient reports sudden onset of pain with swallowing. She reported pain starts after sips of water or any amount of food. It starts in the upper
esophagus/neck and radiates down to the diaphragm and across the diaphragm. She denies any nausea or vomiting. She denies regurgitation. She denies any melena. She denies any hematochezia. She has been unable to tolerate any liquids or solids.
She denies any chest pain at rest. She breath. Denies any cough or wheezing. She denies any fevers or chills.
In the ED he was afebrile hemodynamically stable and in no acute distress. Chemistries were mostly unremarkable except for blood glucose of 69 that trended down to 62. Creatinine was 1.1 and BUN was slightly elevated at 34. CBC was mostly
unremarkable except for mild leukocytosis to 12,000. ECG with sinus rhythm and a 4 degree AV block but without any acute ST or T wave changes.
A&P
1. Odynophyagia/Dysphagia - Pain begins in neck and radiates down the chest. No sensation of food getting stuck. No regurgitation, nasuea or vomiting. No melena. Suspect esophagitis which may be secondary to gastritis from NSAIDs + steroids,
pill esophagitis or hypersensitivity. Its is causing significant PO decline and increased risk of hypoglycemia.
- admit to obs med
- check chest xray
- trial of magic mouth wash
- agree with PPI IV for now
- NPO except selected meds
- holding aspirin, NSAIDs, lovenox for DVT PPX
- GI consultation
2. DM II - Hypoglycemia. Improved with 1/2 amp dextrose. Now on d 5 1/2 NS
- hold lantus for now
- sliding scale insulin q 6
- d/c d5 for glucose > 200
Management of hypertension, hyperlipidemia and pain control per BILLING SPEC
Code Status - Full Code
[2024-04-21 00:53] VITALS: BP 137/68
--- NOTE | 2024-04-21 04:28 | PTCARENOTE ---
Pt aaox3 able to make her needs known. Pt oob with 1 person assist. Pt oriented to room & call escobar in reach.Plan of care continued.
[2024-04-21] MEDS: D5/0.45%NACL 1000 IV ×2 (05:42→15:02)
[2024-04-21 05:45] LABS: Glucose - Point of Care 125 mg/dl (70-99)
[2024-04-21 06:36] LABS: Hematocrit 29.5 % (37.0-47.0); Hemoglobin 10.6 g/dL (12.0-16.0); Mean Corp Hgb Conc. 35.9 g/dL (33.0-37.0); Mean Corpuscular Hgb 31.6 pg (27.0-31.0); Mean Corpuscular Volume 88.1 fL (81.0-99.0); Mean Platelet Volume 11.6 fL (7.4-10.4); Platelet Count 144 10^3/uL (130-400); Red Blood Cell Count 3.35 10^6/uL (4.20-5.40); Red Cell Dist. Width 13.2 % (11.5-14.5); White Blood Cell Count 8.3 10^3/uL (4.8-10.8)
[2024-04-21 06:58] LABS: Blood Urea Nitrogen 23 mg/dl (7-17); Calcium 8.9 mg/dl (8.4-10.2); Carbon Dioxide 24 mmol/L (22-30); Chloride 106 mmol/L (98-107); Estimated Creatinine Clearance 47 ml/min; Glucose 119 mg/dl (70-99); Potassium 4.1 mmol/L (3.5-5.1); Sodium 142 mmol/L (135-145); eGFR > 60.00
[2024-04-21 07:05] VITALS: BP 161/74
[2024-04-21] MEDS: ZESTRIL 40 MG PO (10:25)
[2024-04-21] MEDS: ORETIC 25 MG PO (10:26)
[2024-04-21] MEDS: COLACE 100 MG PO ×2 (10:26→20:28)
[2024-04-21] MEDS: TENORMIN 50 MG PO (10:26)
[2024-04-21] MEDS: SENOKOT 17.2 MG PO (10:26)
[2024-04-21] MEDS: CLEOCIN 300 MG PO ×4 (10:29→21:55)
[2024-04-21] MEDS: NSS (PRESERVATIVE FREE) 10 ML IV (10:52)
[2024-04-21] MEDS: PROTONIX IV 40 MG IV (10:52)
[2024-04-21] MEDS: FIRST-MOUTHWASH BLM SUSPENSION 5 ML PO (10:53)
[2024-04-21 12:05] LABS: Glucose - Point of Care 137 mg/dl (70-99)
--- NOTE | 2024-04-21 12:15 | W.PN.HOSP.TC ---
Today's Communication/Plan
-
see bold
Assessment / Plan
Assessment / Plan
Gen: NAD, AAOx3.
Eyes: EOMI, PERRLA, no scleral icterus.
Neck: supple.
CV: RRR, +S1/S2, no m/r/g.
Resp: CTAB, no rales, wheezes, or rhonchi.
Abd: +BS, soft, NT, ND
Skin: No rashes.
Neuro: CN 2-12 intact, non-focal.
Psych: Normal mood and affect.
CXR: No radiographic evidence for acute cardiopulmonary disease, pneumoperitoneum, or bowel obstruction.
Odynophagia/Dysphagia:
-NPO/IVFs
-magic mouthwash
-cont PPI
-holding home NSAIDs/ASA
-EGD tomorrow
DM2:
-with hypoglycemia
-s/p 1/2 amp D50W
-cont D5 1/2NS
Other problems:
Recent L TKA: complete 5 days prophylactic clindamycin
Essential hypertension: cont Atenolol/HCTZ/ACEi
Hyperlipidemia: cont statin
CKD3b
FULL/SCDs
Anticipated Discharge: 24 - 48 hours
Subjective/Interval History
-
Date of Service: April 21, 2024
No new complaints.
Objective Data
-
Labs:
Laboratory Results
04/21/24
06:18
WBC 8.3
Hgb 10.6 L
Hct 29.5 L
Plt Count 144 D
Sodium 142
Potassium 4.1
Chloride 106
Carbon Dioxide 24
BUN 23 H
Creatinine 0.9
Glucose 119 H
Calcium 8.9
Vital Signs:
Vital Signs
Temp Pulse Resp BP Pulse Ox
99 F 75 20 161/74 97
04/21/24 07:05 04/21/24 10:25 04/21/24 07:05 04/21/24 10:25 04/21/24 07:05
--- NOTE | 2024-04-21 13:07 | CON.GI ---
Consultation
-
Date/Time Consultation Requested: 04/21/2024
Date/Time Consultation Performed: 04/21/2024
Performing Provider: Joseph Bedoya
Reason for Consultation: odynophagia
Medical History
Chief Complaint / HPI
Chief Complaint: odynophagia
History of Present Illness:
Patient is a 84-year-old female with history of hyperlipidemia, HTN, PVD, DM, stage III CKD who presents with odynophagia. Her symptoms started about 2 days ago and has not been able to eat much due to pain when she tries to swallow. Also has some
dysphagia. She recently had orthopedic surgery. Denies NSAID use.
Past Medical History
Past Medical History: GERD, HTN, NIDDM and Other
Past Surgical History: Orthopedic and Other
Social History
Tobacco: Non-Smoker
Alcohol: None
Allergies / Home Medications
Allergy/AdvReac Type Severity Reaction Status Date / Time
Cephalosporins Allergy Unknown Verified 04/09/24 16:22
iodine Allergy Hives Verified 04/09/24 16:22
oxycodone HCl [From Percocet] Allergy hallucinati Verified 04/09/24 16:22
ons
penicillin G Allergy Rash Verified 04/09/24 16:22
Penicillins Allergy Rash Verified 04/16/24 09:32
shellfish derived Allergy Hives Verified 04/09/24 16:22
�Medication �Instructions �Recorded
atenolol 50 mg tablet 50 mg PO DAILY #30 tabs 02/23/17
coenzyme Q10 100 mg capsule (Co 100 mg PO HS Supplement 10/06/19
Q-10)
fluorometholone 0.1 % eye 1 drp BOTH EYES HS Eye condition 10/06/19
drops,suspension
insulin aspart U-100 100 unit/mL 10 - 12 units SC BID Diabetes 10/06/19
(3 mL) subcutaneous pen (Novolog
FlexPen U-100 Insulin aspart)
insulin glargine 100 unit/mL (3 25 units SC DAILY Diabetes 10/06/19
mL) subcutaneous pen (Lantus
Solostar U-100 Insulin)
potassium citrate 15 mEq (1,620 15 meq PO HS Urinary issue ##0 10/06/19
mg) tablet,extended release
simvastatin 20 mg tablet 20 mg PO HS High cholesterol 10/06/19
[place] 3 Ethyl Esters 1 cap PO BID Supplement 04/09/24
calcium carbonate 300 mg PO BID Supplement 04/09/24
hydrochlorothiazide 25 mg tablet 25 mg PO DAILY Fluid 04/09/24
Retention/Swelling
lisinopril 40 mg tablet 40 mg PO DAILY Blood Pressure 04/09/24
multivitamin 1 tab PO DAILY Supplement 04/09/24
mupirocin 2 % topical ointment 1 applic topical BID Infection 04/09/24
sitagliptin phos 100 mg-metformin 1 tab PO QPM Diabetes 04/09/24
ER 1,000 mg tablet,extend rel 24h
mp (Janumet XR)
Probiotic 1 cap PO BID ##0 04/16/24
aspirin 325 mg tablet 325 mg PO DAILY blood clot 04/16/24
prevention #0 tabs
celecoxib 100 mg capsule 100 mg PO BID post op inflammation 04/16/24
#0 caps
clindamycin HCl 300 mg capsule 300 mg PO QID Infection #20 caps 04/16/24
dexamethasone 4 mg tablet 4 mg PO BID post op inflammation 04/16/24
#0 tabs
docusate sodium 100 mg capsule 100 mg PO BID stool softner #1 cap 04/16/24
(Colace)
insulin glargine 100 unit/mL (3 35 unit SC QPM Diabetes 04/16/24
mL) subcutaneous pen
magnesium hydroxide 400 mg/5 mL 30 ml PO HS PRN Constipation #1 mL 04/16/24
oral suspension (Milk of Magnesia)
sennosides 8.6 mg tablet (Senokot) 17.2 mg (2 x 8.6 mg) PO BID 04/16/24
laxative #2 tabs
Review of Systems
Vital Signs
Temp Pulse Resp BP Pulse Ox
99 F 75 20 161/74 97
04/21/24 07:05 04/21/24 10:25 04/21/24 07:05 04/21/24 10:25 04/21/24 07:05
Physical Exam
Exam
General: Well Developed and Well Nourished
HEENT: Normocephalic
Respiratory: Clear
Cardiac: S1/S2
GI: Soft, Non Tender and Non Distended
Results
WBC 8.3 10^3/uL (4.8-10.8) 04/21/24 06:18
Hgb 10.6 g/dL (12.0-16.0) L 04/21/24 06:18
Hct 29.5 % (37.0-47.0) L 04/21/24 06:18
MCV 88.1 fL (81.0-99.0) 04/21/24 06:18
Plt Count 144 10^3/uL (130-400) D 04/21/24 06:18
Absolute Neuts (auto) 7.6 10^3/uL (1.4-6.5) H 04/20/24 20:42
Sodium 142 mmol/L (135-145) 04/21/24 06:18
Potassium 4.1 mmol/L (3.5-5.1) 04/21/24 06:18
Chloride 106 mmol/L (98-107) 04/21/24 06:18
Carbon Dioxide 24 mmol/L (22-30) 04/21/24 06:18
BUN 23 mg/dl (7-17) H 04/21/24 06:18
Creatinine 0.9 mg/dL (0.6-1.0) 04/21/24 06:18
Calcium 8.9 mg/dl (8.4-10.2) 04/21/24 06:18
Total Bilirubin 1.6 mg/dl (0.2-1.3) H 04/20/24 20:42
AST 50 U/L (14-36) H 04/20/24 20:42
ALT 24 U/L (0-35) 04/20/24 20:42
Alkaline Phosphatase 59 U/L (38-126) 04/20/24 20:42
Lipase 216 U/L (23-300) 04/20/24 20:42
Diagnostic Image Results:
Prior GI Procedures:
EGD: 03/2019
Impression: - Normal esophagus.
- Z-line regular, 39 cm from the incisors.
- Chronic gastritis [Hemorrhage]. Biopsied.
- Normal third portion of the duodenum. Biopsied.
- GERD, diagnosis based on history.
Colonoscopy: 03/2019
Impression: - Diverticulosis in the sigmoid colon.
- One 5 mm polyp in the descending colon, removed with a
cold snare. Resected and retrieved.
- The examination was otherwise normal.
- Biopsies were taken with a cold forceps from the
cecum, right colon, transverse colon, left transverse
colon, sigmoid colon and rectum for evaluation of
microscopic colitis.
Assessment / Plan
-
84-year-old female with history of hyperlipidemia, HTN, PVD, DM, stage III CKD who presents with odynophagia. Her symptoms started about 2 days ago and has not been able to eat much due to pain when she tries to swallow. Also has some dysphagia.
She recently had orthopedic surgery. Denies NSAID use.
Impression / Rec:
1. Odynophagia / dysphagia - acute onset after her recent orthopedic surgery. Denies NSAID use. Had unremarkable EGD in 2019. Exam of oral cavity does not show any obvious Pauly/thrush. Will plan for endoscopic evaluation tomorrow.
Total Time Spent with Patient (in minutes): 55
-
-
Thank you for consultation and allowing me to participate in the patient's care. Please call the water pollution control technician GI physician during the after hours with any questions or concerns.
[2024-04-21] MEDS: NOVOLOG FLEXPEN-LOW RESISTANCE SC (13:08)
[2024-04-21 14:57] LABS: Glucose - Point of Care 152 mg/dl (70-99)
[2024-04-21 15:40] VITALS: BP 124/54
[2024-04-21 17:03] LABS: Glucose - Point of Care 201 mg/dl (70-99)
[2024-04-21] MEDS: LOVENOX 40 MG SC (17:47)
[2024-04-21] MEDS: NOVOLOG FLEXPEN-LOW RESISTANCE 2 UNITS SC (18:07)
[2024-04-21] MEDS: SENOKOT PO (21:07)
[2024-04-21] MEDS: FML 0.1% OPHTHALMIC SUSPENSION 1 DROP BOTH EYES (21:55)
[2024-04-21] MEDS: LIPITOR 10 MG PO (21:58)
[2024-04-21] MEDS: UROCIT-K 15 MEQ PO (21:59)
[2024-04-21 23:30] VITALS: BP 135/56
[2024-04-21 23:48] LABS: Glucose - Point of Care 146 mg/dl (70-99)
[2024-04-22] MEDS: NOVOLOG FLEXPEN-LOW RESISTANCE SC (00:30)
[2024-04-22] MEDS: TYLENOL 650 MG PO (04:07)
[2024-04-22] MEDS: D5/0.45%NACL 1000 IV (05:03)
[2024-04-22 06:23] LABS: Glucose - Point of Care 179 mg/dl (70-99)
[2024-04-22] MEDS: NOVOLOG FLEXPEN-LOW RESISTANCE 1 UNITS SC ×3 (06:28→16:08)
[2024-04-22 07:40] VITALS: BP 134/59
[2024-04-22] MEDS: ZESTRIL 40 MG PO (07:53)
[2024-04-22] MEDS: TENORMIN 50 MG PO (07:53)
[2024-04-22] MEDS: SENOKOT PO (07:53)
[2024-04-22] MEDS: ORETIC 25 MG PO (07:53)
[2024-04-22] MEDS: NSS (PRESERVATIVE FREE) 10 ML IV (07:54)
[2024-04-22] MEDS: PROTONIX IV 40 MG IV (07:54)
[2024-04-22] MEDS: COLACE PO (08:00)
[2024-04-22 08:18] LABS: Blood Urea Nitrogen 15 mg/dl (7-17); Carbon Dioxide 31 mmol/L (22-30); Chloride 102 mmol/L (98-107); Estimated Creatinine Clearance 47 ml/min; Glucose 167 mg/dl (70-99); Potassium 3.9 mmol/L (3.5-5.1); Sodium 140 mmol/L (135-145); eGFR > 60.00
[2024-04-22 08:23] LABS: Hemoglobin 10.9 g/dL (12.0-16.0); Mean Corp Hgb Conc. 34.1 g/dL (33.0-37.0); Mean Corpuscular Hgb 31.8 pg (27.0-31.0); Mean Corpuscular Volume 93.3 fL (81.0-99.0); Mean Platelet Volume 11.2 fL (7.4-10.4); Platelet Count 192 10^3/uL (130-400); Red Blood Cell Count 3.43 10^6/uL (4.20-5.40); Red Cell Dist. Width 13.3 % (11.5-14.5); White Blood Cell Count 10.1 10^3/uL (4.8-10.8)
--- NOTE | 2024-04-22 09:13 | CM ---
CM met with Sabine to complete IA. She lives with her and adult daughter (who has CP but is independent) in a multi story home. There is a ramp to enter and a flight of steps down to the basement where her family room is. Sabine uses a quad
cane for very long distances and also has a rolling walker, single point cane, shower seat and wheel chair.
At discharge last week she was functioning independently with plan to attend outpatient therapy.
Sabine uses a quad cane for very long distances and also has a rolling walker, single point cane, shower seat and wheel chair.
CM will follow for discharge needs.
PCP: Dr. Yaya Morton.
Pharmacy: [facility]
--- NOTE | 2024-04-22 11:20 | W.PN.HOSP.TC ---
Today's Communication/Plan
-
d/c
Assessment / Plan
Assessment / Plan
Gen: NAD, AAOx3.
Eyes: EOMI, PERRLA, no scleral icterus.
Neck: supple.
CV: Remains RRR, +S1/S2, no m/r/g.
Resp: Remains CTAB, no rales, wheezes, or rhonchi.
Abd: +BS, soft, NT, ND
Skin: No rashes.
Neuro: Remains CN 2-12 intact, non-focal.
Psych: Normal mood and affect.
CXR: No radiographic evidence for acute cardiopulmonary disease, pneumoperitoneum, or bowel obstruction.
EGD: Grade C esophagitis with superficial ulceration (biopsied). Multiple Olivia in antrum/pylorus clean based (biposied).
Odynophagia/Dysphagia due to grade C esophagitis with superficial ulceration:
-Patient was initially NPO and supported with IVFs
-EGD above
-Okay to advance diet to diabetic diet
-cont PPI BID
-holding home NSAIDs/ASA, will not continue NSAIDs on d/c
DM2:
-with hypoglycemia
-s/p 1/2 amp D50W
-was on D5 1/2NS, now off
Other problems:
Recent L TKA: completed 5 days prophylactic clindamycin
Essential hypertension: cont Atenolol/HCTZ/ACEi
Hyperlipidemia: cont statin
CKD3b
FULL/SCDs
Total time spent on d/c = 35 min. This included today's physical exam, progress note, review of laboratory and diagnostic data, preparation of discharge documents and prescriptions, and discussions about the pt's hospital course and discharge plan
with the patient and other medical coding manager involved in the patient's care.
Anticipated Discharge: Today
Subjective/Interval History
-
Date of Service: April 22, 2024
Currently denies chest pain, shortness of breath, abdominal pain.
Objective Data
-
Labs:
Laboratory Results
04/22/24
06:43
WBC 10.1
Hgb 10.9 L
Hct 32.0 L
Plt Count 192 D
Sodium 140
Potassium 3.9
Chloride 102
Carbon Dioxide 31 H
BUN 15
Creatinine 0.9
Glucose 167 H
Calcium 9.0
Vital Signs:
Vital Signs
Temp Pulse Resp BP Pulse Ox
97.8 F 69 18 134/59 96
04/22/24 07:40 04/22/24 07:53 04/22/24 07:40 04/22/24 07:53 04/22/24 09:45
I&O
04/21/24 04/22/24 04/23/24
06:59 06:59 06:59
Intake Total 720 / 720
Balance 720 / 720
[2024-04-22 11:51] LABS: Glucose - Point of Care 189 mg/dl (70-99)
--- NOTE | 2024-04-22 13:48 | W.PN.UPDATE ---
Update Note
Progress Note Update
EGD done
Grade C esophagitis with superficial ulceration- bx'd
Multiple Olivia in antrum/pylorus clean based- bx'd
REC:
Await path
Resume ADA diet
Protonix BID
Avoid NSAIDs
Follow up with me in office to set up repeat EGD to check healing- I left my contact in the d/c instructions
Will sign off. Please call back if needed.
[2024-04-22 13:53] VITALS: BP 123/56; BP_SYST 18
[2024-04-22 13:57] LABS: Glucose - Point of Care 186 mg/dl (70-99)
[2024-04-22 14:08] VITALS: BP 121/56; BP_SYST 18
[2024-04-22 14:23] VITALS: BP 139/59; BP_SYST 20
[2024-04-22 14:50] VITALS: BP 143/56
[2024-04-22 16:04] LABS: Glucose - Point of Care 178 mg/dl (70-99)
--- NOTE | 2024-04-22 16:09 | W.DCSUMMARY ---
Discharge Summary
Discharge Data
Date of Admission: 04/20/24
Date of Discharge: 04/22/24
-
Pending Results: Yes
Additional Pending Results:
esophageal and gastric ulcer biopsies
Hospital Course
Primary diagnoses:
Grade C esophagitis with superficial ulcerations
Linear gastric antrum ulcers
Type 2 diabetes mellitus with hypoglycemia
Secondary diagnoses:
Recent left total knee arthroplasty
Essential hypertension
Hyperlipidemia
Chronic kidney disease stage 3b
Consultants:
Gastroenterology
Imaging/Procedures:
CXR: No radiographic evidence for acute cardiopulmonary disease, pneumoperitoneum, or bowel obstruction.
EGD: Grade C esophagitis with superficial ulceration (biopsied). Multiple gastric ulcers in antrum/pylorus clean based (biposied).
84-year-old female who presented with odynophagia as outlined in the H&P done on admission. Hospital course per problem list
Grade C esophagitis with superficial ulcerations, Linear gastric antrum ulcers: Patient was initially kept n.p.o. and supported with IV fluids. She was started on PPI. She was seen in consultation by GI and had an EGD as above. Patient will
remain on PPI twice daily on discharge and will need a follow-up EGD after discharge to ensure healing.
Type 2 diabetes mellitus with hypoglycemia: The patient had hypoglycemia. She received one half amp of D50 water and then was on D5 half-normal saline afterwards with resolution of her hypoglycemia.
Discharge Plan
-
Patient Disposition: Home (Routine Discharge)
Discharge Diagnosis/Procedures: Grade C esophagitis with superficial ulceration
Condition: Good
Diet: Diabetic, Carb Controlled
Activity: As tolerated
Driving Restrictions: As prior to admission
Referrals:
Yaya Morton MD [Family Provider] - in less than 1 week
Darren Leal MD [Active] -
Prescriptions:
New
pantoprazole 40 mg Tablet,Delayed Release (Dr/Ec)
40 mg PO BID Qty: 60 0RF
Continued
atenolol 50 MG tablet
50 mg PO DAILY Qty: 30 1RF
simvastatin 20 MG tablet
20 mg PO HS
fluorometholone 1 DROP drops,suspension
1 drp BOTH EYES HS
coenzyme Q10 [Co Q-10] 100 MG capsule
100 mg PO HS
insulin aspart U-100 [Novolog FlexPen U-100 Insulin] 300 UNITS/3 ML insulin pen
10 - 12 units SC BID
Patient Comments:
01/22/20 patient only takes when bs>115
insulin glargine [Lantus Solostar U-100 Insulin] 300 UNITS/3 ML insulin pen
25 units SC DAILY
potassium citrate 15 MEQ tablet extended release
15 meq PO HS Qty: 0
multivitamin Tablet
1 tab PO DAILY
calcium carbonate 300 mg (750 mg) Tablet,Chewable
300 mg PO BID
hydrochlorothiazide 25 mg Tablet
25 mg PO DAILY
mupirocin 2 % Ointment
1 applic TOPICAL BID
Patient Comments:
started sunday am bid, applied 04/16/24 am
lisinopril 40 mg Tablet
40 mg PO DAILY
Janumet XR 100-1,000 mg Tablet, Er Multiphase 24 Hr
1 tab PO QPM
[place] 3 Ethyl Esters 1 g capsule
1 cap PO BID
insulin glargine 100 unit/mL (3 mL) Insulin Pen
35 unit SC QPM
sennosides [Senokot] 8.6 mg tablet
17.2 mg PO BID Qty: 2 0RF
magnesium hydroxide [Milk of Magnesia] 400 mg/5 mL suspension
30 ml PO HS PRN (Reason: Constipation) Qty: 1 0RF
docusate sodium [Colace] 100 mg capsule
100 mg PO BID Qty: 1 0RF
aspirin 325 mg Tablet
325 mg PO DAILY Qty: 0 0RF
Patient Comments:
*
Rx Instructions:
x30 day
dexamethasone 4 mg Tablet
4 mg PO BID Qty: 0 0RF
Patient Comments:
*
Rx Instructions:
x3 days
Probiotic
1 cap PO BID Qty: 0 0RF
Discontinued
celecoxib 100 mg Capsule
100 mg PO BID Qty: 0 0RF
Patient Comments:
*
Rx Instructions:
x 15 days
clindamycin HCl 300 mg capsule
300 mg PO QID Qty: 20 0RF
Discharge Orders:
Discharge Patient (As Directed); Ordered 04/22/24
Ordered By: Roman Cooley
Discharge Date and Time
Print Language: SAMMARINESE
== END 2024-04-22 18:17 | disposition home or self-care (01) | DRG 382 ==
LOC: 4 EAST ACU 22:37
PROVIDERS: Registered Nurse; Specialist; ADMITTING PHYSICIAN Internal Medicine; ATTENDING PHYSICIAN Internal Medicine; CONSULT PHYSICIAN Internal Medicine Gastroenterology; EMERGENCY PHYSICIAN Emergency Medicine; FAMILY PHYSICIAN Family Medicine
PROC: 0DB38ZX Excision of Lower Esophagus, Via Natural or Artificial Opening Endoscopic, Diagnostic (ICD-10-PCS; 2024-04-22)
PROC: 0DB78ZX Excision of Stomach, Pylorus, Via Natural or Artificial Opening Endoscopic, Diagnostic (ICD-10-PCS; 2024-04-22)
DX: K22.10 Ulcer of esophagus without bleeding (principal); K25.9 Gastric ulcer, unspecified as acute or chronic, without hemorrhage or perforation; K21.00 Gastro-esophageal reflux disease with esophagitis, without bleeding; E78.5 Hyperlipidemia, unspecified; E11.22 Type 2 diabetes mellitus with diabetic chronic kidney disease; I12.9 Hypertensive chronic kidney disease with stage 1 through stage 4 chronic kidney disease, or unspecified chronic kidney disease; N18.32 Chronic kidney disease, stage 3b; E11.51 Type 2 diabetes mellitus with diabetic peripheral angiopathy without gangrene; E11.649 Type 2 diabetes mellitus with hypoglycemia without coma; D63.1 Anemia in chronic kidney disease; D72.829 Elevated white blood cell count, unspecified; Z91.041 Radiographic dye allergy status; Z88.0 Allergy status to penicillin; Z88.5 Allergy status to narcotic agent; Z79.84 Long term (current) use of oral hypoglycemic drugs; Z79.4 Long term (current) use of insulin; Z79.82 Long term (current) use of aspirin; Z79.899 Other long term (current) drug therapy; Z94.7 Corneal transplant status; Z96.652 Presence of left artificial knee joint
CPT/HCPCS: 88305; 71046; 80048; 80053; 82962; 83690; 85025; 85027; 88342; 93005; 96361; 96374; 96375; 99285

== ENCOUNTER 2024-04-23 06:07 | Emergency (ER) | payer OTHER, SELFPAY ==
[2024-04-23 06:10] VITALS: BP 123/55
[2024-04-23 08:00] VITALS: BP 120/53
--- NOTE | 2024-04-23 08:13 | ED.GENMED ---
History of Present Illness
General
Chief Complaint: Fall
Source: patient
Exam Limitations: none
Time Seen by Provider: 04/23/24 07:07
Nursing documentation reviewed up to this point in time: agreed with
History of Present Illness
History of Present Illness:
84-year-old female with history HTN, HLD, IDDM, left knee replacement on 04/16, sent home on 04/17, back here on 04/21 for odynophagia after swallowing her pills, upper endoscopy showing esophagitis, esophageal ulcers w/o bleeding, DC'd on Protonix.
Here now for fall. States at 12:45 a.m. she was sitting on sofa after icing her knee, got up, felt lightheaded, sat back down on arm of sofa, felt better, then suddenly felt faint and fell to the floor, striking her right forehead on the floor. She
felt herself fall and felt herself hit the floor. No LOC. States 'the floor felt so cool and my was asleep so I laid on the floor until 5 a.m. when he woke up.' He called EMS as she was unable to get up due to her recent knee surgery. She
denies CP, SOB, abd pain, n/v/d/c. She denies injury to extremities, denies neck and back pain. Not anticoagulated
Past History
Past History
ED Past Medical History: HTN, IDDM, Renal failure (Renal insufficiency) and Other (Kidney stones)
ED Past Surgical History: Tonsilectomy, Urological and Other
Social History
Tobacco: Non-smoker
Alcohol: None
Drug: None
Living: with family
Employment: Not employed
Review of Systems
Review of Systems
Allergies reviewed?: Yes
All Other Systems: ROS reviewed and negative except as documented in HPI and ROS
Constitutional: Denies fever or fatigue
Respiratory: Denies trouble breathing
Cardiac: Denies chest pain
ABD/GI: Denies abdominal pain, nausea, vomiting, diarrhea, bloody stools or black stools
: Denies dysuria, frequency, incontinence or difficulty voiding
Musculoskeletal: Reports other (L knee healing well, dressing intact, ); Denies neck pain or back pain
Skin: Reports other (contusion mild local swelling right forehead)
Neurological: Reports no symptoms
Phy Exam
Physical Exam
Physical Exam:
GENERAL: No acute distress. A&Ox3.
CONSTITUTIONAL: Afebrile.
Head: small contusion right forehead, minimal swelling
EYES: PERRL, conjunctivae normal
Neck: Supple
ENMT: moist mucus membranes, Pharynx nl
RESPIRATORY: Regular respirations, nonlabored, lungs clear.
CARDIOVASCULAR: Regular rate and rhythm, no murmurs, no rubs.
GI: Soft, nontender, normal BS
MUSCULOSKELETAL: No spinal bony tenderness. left knee dressing is intact, old dried blood on dressing, distal n/v intact. No tenderness to other extremities moves with ease. Well perfused.
SKIN: Warm, dry, pink
PSYCH: Normal mood and affect. Well kept, interactive and appropriate
NEUROLOGIC: Awake, alert and oriented. Speech clear. No focal neurological deficits
Course
Orders/Labs/Results
Orders:
Orders
04/23/24 07:18
Electrocardiogram (*1) Urgent
Reason for Study: Vertigo / Dizzy
EKG- Treatment ONCE
04/23/24 07:58
CPK Isoenzyme Urgent
Complete Blood Count/With Diff Urgent
Comprehensive Metabolic Panel Urgent
04/23/24 09:06
0.9% Sodium Chloride 500 ml [Nss] 500 ml IV BOLUS
04/23/24 11:29
Urinalysis Reflex To Culture Urgent
Date Specimen was Collected: 04/23/24
Time Specimen was Collected: 11:10
Urine Microscopic Reflex Cult Urgent
Urine Culture Urgent
SVETLANA Source: U
Specimen Description:
Date Specimen was Collected: 04/23/24
Time Specimen was Collected: 11:10
Abnormal Lab Results
04/23/24 04/23/24
07:58 11:29
WBC 13.3 H 10^3/uL
(4.8-10.8)
RBC 3.64 L 10^6/uL
(4.20-5.40)
Hgb 11.1 L g/dL
(12.0-16.0)
Hct 33.2 L %
(37.0-47.0)
MPV 11.3 H fL
(7.4-10.4)
Abs Immat Gran (auto) 0.1 H 10^3/uL
(0-0.05)
Absolute Neuts (auto) 12.0 H 10^3/uL
(1.4-6.5)
Absolute Lymphs (auto) 0.9 L 10^3/uL
(1.2-3.4)
Neutrophils % 90.0 H %
(42.2-75.2)
Lymphocytes % 6.8 L %
(20.5-51.1)
BUN 26 H mg/dl
(7-17)
Creatinine 1.3 H mg/dL
(0.6-1.0)
Glucose 221 H mg/dl
(70-99)
Total Bilirubin 1.8 H mg/dl
(0.2-1.3)
Leukocyte Esterase Rfl 1+ A
(Negative)
Urine Bacteria (Reflex) Few A
(Negative)
Urine Glucose 1+ A
(Negative)
04/23/24 07:58
04/23/24 07:58
Vital Signs
Initial and Last Documented VS:
Initial Vital Signs
Temp Pulse Resp BP Pulse Ox
98.2 F 66 18 123/55 99
04/23/24 06:10 04/23/24 06:10 04/23/24 06:10 04/23/24 06:10 04/23/24 06:10
Last Documented Vital Signs
Temp Pulse Resp BP Pulse Ox
98.2 F 80 19 133/62 97
04/23/24 06:10 04/23/24 11:00 04/23/24 11:00 04/23/24 11:00 04/23/24 11:00
MDM/Problems Addressed
Differential Diagnosis Includes:
dehydration, vaso vagal episode, hypoglycemia
MDM/Problems Addressed:
84-year-old female with history HTN, HLD, IDDM, left knee replacement on 04/16, sent home on 04/17, back here on 04/21 for odynophagia after swallowing her pills, upper endoscopy showing esophagitis, esophageal ulcers w/o bleeding, DC'd on Protonix.
Here now for fall. States at 12:45 a.m. she was sitting on sofa after icing her knee, got up, felt lightheaded, sat back down on arm of sofa, felt better, then suddenly felt faint and fell to the floor, striking her right forehead on the floor. She
felt herself fall and felt herself hit the floor. No LOC. States 'the floor felt so cool and my was asleep so I laid on the floor until 5 a.m. when he woke up.' He called EMS as she was unable to get up due to her recent knee surgery. She
denies CP, SOB, abd pain, n/v/d/c. She denies injury to extremities, denies neck and back pain.
Her left knee dressing is intact, old dried blood on dressing, distal n/v intact. Not anti coagulated.
CBC: WBC 13.3 most likely stress reaction
CMP: BUN/Creat 26/1.8, Glucose 221 otherwise normal (IV fluids ordered for mild dehydration)
No LOC, No neuro deficits, no headache, no thinners, no indication for head CT.
Pt has been OOB and ambulated well to with walker.
10:20 a.m.
Pt IVFs in, stable for discharge
BP 123/45 HR 82
Will check U/A
Chronic conditions affecting care: DM
*Critical Care Note
Total Time (30-74mins, 75-104mins- exclusive of procedures): Not Applicable
ED Attending Note
-
Portions of this chart may have been created with voice recognition software.� Occasional wrong word or��sound alike� substitutions may have occurred due to the inherent limitations of voice recognition software.
Discharge Plan
Departure
Patient Disposition: Home (Routine Discharge)
Date of Disposition: 04/23/24
Time of Disposition: 10:28
Patient with high blood pressure during this ER visit?: No
Condition: Good
Discharge Problem:
Mild dehydration, Fall, Contusion of forehead
Instructions: Head Injury in Adults (DC), Contusion (DC), Preventing falls in adults, Dehydration, Adult ED
Prescriptions:
No Action
atenolol 50 MG tablet
50 mg PO DAILY Qty: 30 1RF
simvastatin 20 MG tablet
20 mg PO HS
fluorometholone 1 DROP drops,suspension
1 drp BOTH EYES HS
coenzyme Q10 [Co Q-10] 100 MG capsule
100 mg PO HS
insulin aspart U-100 [Novolog FlexPen U-100 Insulin] 300 UNITS/3 ML insulin pen
10 - 12 units SC BID
Patient Comments:
01/22/20 patient only takes when bs>115
insulin glargine [Lantus Solostar U-100 Insulin] 300 UNITS/3 ML insulin pen
25 units SC DAILY
potassium citrate 15 MEQ tablet extended release
15 meq PO HS Qty: 0
multivitamin Tablet
1 tab PO DAILY
calcium carbonate 300 mg (750 mg) Tablet,Chewable
300 mg PO BID
hydrochlorothiazide 25 mg Tablet
25 mg PO DAILY
mupirocin 2 % Ointment
1 applic TOPICAL BID
Patient Comments:
started sunday am bid, applied 04/16/24 am
lisinopril 40 mg Tablet
40 mg PO DAILY
Janumet XR 100-1,000 mg Tablet, Er Multiphase 24 Hr
1 tab PO QPM
[place] 3 Ethyl Esters 1 g capsule
1 cap PO BID
insulin glargine 100 unit/mL (3 mL) Insulin Pen
35 unit SC QPM
sennosides [Senokot] 8.6 mg tablet
17.2 mg PO BID Qty: 2 0RF
magnesium hydroxide [Milk of Magnesia] 400 mg/5 mL suspension
30 ml PO HS PRN (Reason: Constipation) Qty: 1 0RF
docusate sodium [Colace] 100 mg capsule
100 mg PO BID Qty: 1 0RF
aspirin 325 mg Tablet
325 mg PO DAILY Qty: 0 0RF
Patient Comments:
*
Rx Instructions:
x30 day
dexamethasone 4 mg Tablet
4 mg PO BID Qty: 0 0RF
Patient Comments:
*
Rx Instructions:
x3 days
Probiotic
1 cap PO BID Qty: 0 0RF
pantoprazole 40 mg Tablet,Delayed Release (Dr/Ec)
40 mg PO BID Qty: 60 0RF
Referrals:
Yaya Morton MD [Family Provider] -
Activity Restrictions/Additional Instructions:
As we discussed, your blood work shows mild dehydration, drink at least 6 eight ounce glasses of fluid/water daily.
I will call you if your urine test shows infection.
As arranged, follow up with Dr. Morton after your orthopedic appointment next Sunday.
Interventions
Interventions:
*Risk Screen - Suicide Last Done: 04/23/24 06:10
*General Assessment Last Done: 04/23/24 06:10
*Neglect/Abuse Screening Last Done: 04/23/24 06:10
ED- Fall Risk Assessment Last Done: 04/23/24 06:10
*ED COVID-19 Vaccine History Last Done: 04/23/24 06:10
*Nursing Disposition Last Done: 04/23/24 11:49
ED-Musculoskeletal Assessment Last Done: 04/23/24 07:18
ED- Neurological Assessment Last Done: 04/23/24 07:18
ED-Skin Assessment Last Done: 04/23/24 07:18
Discharge Date and Time
Discharge Date/Time: 04/23/24 11:51
Print Language: ESTONIAN
[2024-04-23 08:28] LABS: % Basophils 0.1 % (0-2); % Immature Granulocytes 0.4 % (0-0.5); % Lymphocytes 6.8 % (20.5-51.1); % Monocytes 2.7 % (1.7-9.3); Absolute Immature Granulocytes 0.1 10^3/uL (0-0.05); Absolute Lymphocytes 0.9 10^3/uL (1.2-3.4); Absolute Monocytes 0.4 10^3/uL (0.1-0.6); Hematocrit 33.2 % (37.0-47.0); Hemoglobin 11.1 g/dL (12.0-16.0); Mean Corp Hgb Conc. 33.4 g/dL (33.0-37.0); Mean Corpuscular Hgb 30.5 pg (27.0-31.0); Mean Corpuscular Volume 91.2 fL (81.0-99.0); Mean Platelet Volume 11.3 fL (7.4-10.4); Nucleated Red Blood Cells % 0 %; Platelet Count 243 10^3/uL (130-400); Red Blood Cell Count 3.64 10^6/uL (4.20-5.40); Red Cell Dist. Width 13.4 % (11.5-14.5); White Blood Cell Count 13.3 10^3/uL (4.8-10.8)
[2024-04-23 08:34] LABS: ALT (SGPT) 20 U/L (0-35); AST (SGOT) 27 U/L (14-36); Albumin 4.1 g/dl (3.5-5.0); Alkaline Phosphatase 64 U/L (38-126); Blood Urea Nitrogen 26 mg/dl (7-17); Calcium 10.1 mg/dl (8.4-10.2); Carbon Dioxide 28 mmol/L (22-30); Chloride 100 mmol/L (98-107); Glucose 221 mg/dl (70-99); Potassium 4.6 mmol/L (3.5-5.1); Total Bilirubin 1.8 mg/dl (0.2-1.3); Total CK 71 U/L (30-135); Total Protein 6.7 g/dl (6.3-8.2); eGFR 41.06
[2024-04-23 08:47] LABS: Sodium 141 mmol/L (135-145)
[2024-04-23 09:07] LABS: CKMB 1.2 ng/ml (0.0-2.4)
[2024-04-23 09:09] VITALS: BP 105/53
[2024-04-23] MEDS: NSS 500 IV (09:12)
[2024-04-23 09:19] VITALS: BP 105/53
[2024-04-23 10:00] VITALS: BP 123/45
[2024-04-23 11:00] VITALS: BP 133/62
[2024-04-23 11:51] LABS: Urine Albumin Trace (Neg - Trace); Urine Bilirubin Negative (Negative); Urine Character Clear (Clear); Urine Color Yellow; Urine Glucose 1+ (Negative); Urine Ketone Negative (Negative); Urine Leukocyte 1+ (Negative); Urine Nitrite Negative (Negative); Urine Occult Blood Negative (Negative); Urine Urobilinogen Negative (Neg - 1+)
[2024-04-23 12:03] LABS: Urine Squamous Cell 26-30 /LPF (Few)
[2024-04-23 12:04] LABS: Urine Bacteria Few (Negative); Urine Red Blood Cell 0-2 /HPF (0-2)
== END 2024-04-23 11:51 | disposition home or self-care (01) ==
LOC: EMR 06:07
PROVIDERS: Registered Nurse; EMERGENCY PHYSICIAN Emergency Medicine; FAMILY PHYSICIAN Family Medicine
DX: E86.0 Dehydration (principal); S00.83XA Contusion of other part of head, initial encounter; W18.39XA Other fall on same level, initial encounter; I10 Essential (primary) hypertension; E11.9 Type 2 diabetes mellitus without complications; N28.9 Disorder of kidney and ureter, unspecified; Z87.442 Personal history of urinary calculi; Z96.652 Presence of left artificial knee joint
CPT/HCPCS: 99283; 80053; 81003; 81015; 82550; 82553; 85025; 87086; 93005

== ENCOUNTER → 2024-07-25 06:21 | Day surgery (SDC) | payer OTHER, SELFPAY ==
[2024-07-25 07:47] LABS: Glucose - Point of Care 239 mg/dl (70-99)
== END ==
LOC: GI 06:21
PROVIDERS: ATTENDING PHYSICIAN Specialist; FAMILY PHYSICIAN Family Medicine
PROC: 0DB68ZX Excision of Stomach, Via Natural or Artificial Opening Endoscopic, Diagnostic (ICD-10-PCS; 2024-07-25)
DX: Z09 Encounter for follow-up examination after completed treatment for conditions other than malignant neoplasm (principal); Z87.11 Personal history of peptic ulcer disease; K31.89 Other diseases of stomach and duodenum
CPT/HCPCS: 43239; 88305; 82962; 88342